=== PATIENT | female | born 1995 | race African-American/Black ===

== ENCOUNTER 2017-05-13 17:05 | Emergency (ER) | payer SELFPAY ==
[~2017-05-13] VITALS: Ht 157.5 cm; Wt 100.7 kg
[2017-05-13 17:48] LABS: HEMATOCRIT 39.4 % (36.0-46.0); MCH 28.9 PG (29.0-34.0); MCHC 33.5 G/DL (30.0-36.0); MCV 86.4 FL (83-99); MEAN PLAT.VOLUME 9.7 uM^3 (9.5-12.4); PLATELET COUNT 333 K/uL (156-360); RBC DIS.WIDTH-CV 12.3 % (11.8-14.6); RED BLOOD COUNT 4.56 M/uL (3.80-5.20); WHITE BLOOD COUNT 10.8 K/uL (4.1-10.2)
[2017-05-13 17:56] LABS: CHLORIDE 109 mEq/L (99-109); POTASSIUM 3.8 mEq/L (3.7-5.4); SODIUM 140 mEq/L (136-147)
[2017-05-13 17:58] LABS: GLUCOSE 92 mg/dL (70-99)
[2017-05-13 18:00] LABS: ANION GAP 8 MEQ/L (2-14)
[2017-05-13 18:03] LABS: GFR ESTIMATE (CALCULATED) > 59 mL/min/; UREA NITROGEN (BUN) 12 mg/dL (9-23)
[2017-05-13 18:08] LABS: TROP-I INTERPRETATION NEGATIVE; TROPONIN-I < 0.01 ng/mL (0.0-0.30)
[2017-05-13 18:30] LABS: QUANTITATIVE HCG < 4.0 MIU/ML
[2017-05-13 19:24] VITALS: BP 117/61
== END 2017-05-13 19:25 | disposition home or self-care (01) ==
LOC: EME 17:05
DX: M94.0 Chondrocostal junction syndrome [Tietze] (principal); J45.909 Unspecified asthma, uncomplicated; F17.200 Nicotine dependence, unspecified, uncomplicated
CPT/HCPCS: 71020; 80048; 84484; 84702; 85027; 93005; 99281; 99284

== ENCOUNTER 2017-07-02 14:30 | Emergency (ER) | payer SELFPAY ==
[~2017-07-02] VITALS: Ht 156.2 cm; Wt 101.6 kg
[2017-07-02 14:32] VITALS: BP 116/75
[2017-07-02] MEDS ORDERED: ZITHROMAX Z-PA250 MG PO (17:00)
[2017-07-02] MEDS ORDERED: PREDNISONE10 M1 PO (17:00)
[2017-07-02] MEDS ORDERED: MOTRIN600 MG PO (17:00)
== END 2017-07-02 17:53 | disposition home or self-care (01) ==
LOC: EME 14:30
DX: J06.9 Acute upper respiratory infection, unspecified (principal)
CPT/HCPCS: 99281; 99284

== ENCOUNTER 2018-02-13 00:24 | Emergency (ER) | payer OTHER ==
[~2018-02-13] VITALS: Ht 154.9 cm; Wt 97.5 kg
[~2018-02-13 00:24] MED LIST: MOTRIN600 MG PO; PREDNISONE10 M1 PO; ZITHROMAX Z-PA250 MG PO
[2018-02-13] MEDS ORDERED: MOTRIN800 MG PO (01:38)
[2018-02-13 02:05] VITALS: BP 137/92
== END 2018-02-13 02:06 | disposition home or self-care (01) ==
LOC: EME → EDBD 00:24 → EME 00:24
PROC: 0HQ1XZZ Repair Face Skin, External Approach (ICD-10-PCS; principal; 2018-02-13)
DX: S01.81XA Laceration without foreign body of other part of head, initial encounter (principal); W01.0XXA Fall on same level from slipping, tripping and stumbling without subsequent striking against object, initial encounter; Y93.01 Activity, walking, marching and hiking; Y92.480 Sidewalk as the place of occurrence of the external cause; R42 Dizziness and giddiness; F17.200 Nicotine dependence, unspecified, uncomplicated
CPT/HCPCS: 99281; 99284